=== PATIENT | female | born 1985 | race Caucasian/White ===

== ENCOUNTER 2018-01-02 14:43 | Emergency (ER) | payer OTHER ==
[~2018-01-02] VITALS: Ht 157.5 cm; Wt 54.9 kg
[~2018-01-02 14:43] MED LIST: AMOX TR-K CLV1 EAC3 PO; CLARITIN10 M3; CORTISONE99 GM; ECONAZOLE 1% CR30 G1; HYDROCODON-ACE1 EAC7 PO; NORCO 5-325 TA1 EACH PO; PENICILLIN VK500 M1 PO; PHENERGAN 25 MG25 M1 PO; TRIAMCINOLONE A15 G1 TP; ULTRAM 50MG TAB50 MG PO; ZOFRAN ODT4 MG PO; ZPAK PO
[2018-01-02] MEDS ORDERED: NORFLEX100 MG PO (16:48)
[2018-01-02] MEDS ORDERED: KEFLEX500 M1 PO (16:48)
[2018-01-02] MEDS ORDERED: ERYTHROMYCIN E3.5 G3 OPHTHALMIC (16:48)
[2018-01-02] MEDS ORDERED: NAPROSYN500 MG PO (16:48)
[2018-01-02 17:07] VITALS: BP 150/76
== END 2018-01-02 17:08 | disposition home or self-care (01) ==
LOC: ER 14:43
DX: S00.83XA Contusion of other part of head, initial encounter (principal); L03.211 Cellulitis of face; W18.30XA Fall on same level, unspecified, initial encounter; Y93.89 Activity, other specified; Y92.89 Other specified places as the place of occurrence of the external cause; Y99.8 Other external cause status